=== PATIENT | female | born 1965 | race Caucasian/White ===

== ENCOUNTER → 2023-06-13 17:54 | Outpatient (REF) | payer OTHER, SELFPAY | LOC: WDC 17:54 | PROVIDERS: ATTENDING PHYSICIAN Family Medicine | DX: Z12.31 Encounter for screening mammogram for malignant neoplasm of breast (principal) | CPT/HCPCS: 77063; 77067 ==

== ENCOUNTER → 2023-08-01 07:55 | Outpatient (REF) | payer OTHER, SELFPAY | LOC: HWEVLT 07:55 | PROVIDERS: ATTENDING PHYSICIAN Radiology Diagnostic Radiology | DX: I83.893 Varicose veins of bilateral lower extremities with other complications (principal) | CPT/HCPCS: 93970 ==

== ENCOUNTER → 2024-10-28 15:31 | Outpatient (REF) | payer OTHER, SELFPAY | LOC: WDC 15:31 | PROVIDERS: ATTENDING PHYSICIAN Family Medicine | DX: Z12.31 Encounter for screening mammogram for malignant neoplasm of breast (principal) | CPT/HCPCS: 77063; 77067 ==